=== PATIENT | male | born 1975 | race Caucasian/White ===

== ENCOUNTER 2021-02-13 16:07 | Inpatient (IN) | payer OTHER ==
[2021-02-13] MEDS ORDERED: MAGNESIUM CITRATE 300 ML BOTTLE PO PRN (20:09)
[2021-02-13] MEDS ORDERED: IBUPROFEN 400 MG TABLET (FP) PO PRN (20:09)
[2021-02-13] MEDS ORDERED: MENTHOL/PHENOL 1 EACH UD MM PRN (20:09)
[2021-02-13] MEDS ORDERED: ONDANSETRON *ODT* 4 MG TABLET SL PRN (20:09)
[2021-02-13] MEDS ORDERED: ACETAMINOPHEN 325 MG TABLET (FP) PO PRN ×2 (20:09)
[2021-02-13] MEDS ORDERED: MAGNESIUM HYDROX 2400MG/30ML ORAL SUSPENSION 30 ML CUP PO PRN (20:09)
[2021-02-13] MEDS ORDERED: BISMUTH SUBSALICYLATE 524 MG/30 ML PO PRN (20:09)
[2021-02-13] MEDS ORDERED: MAG HYDROX/AL HYDROX/SIMETH 30 ML UNIT-DOSE CUP PO PRN (20:09)
[2021-02-13 21:45] VITALS: BMI 25.5
[2021-02-14] MEDS ORDERED: diazePAM 5 MG TABLET ONE (00:02)
[2021-02-14] MEDS: diazePAM 5 MG TABLET PO SCH ×5 (00:06→22:13)
[2021-02-14] MEDS: THIAMINE HCL 100 MG TABLET (FP) PO SCH ×2 (00:06→22:14)
[2021-02-14] MEDS: MELATONIN 5 MG TABLETS PO SCH ×2 (00:08→22:12)
[2021-02-14] MEDS: NICOTINE POLACRILEX 2 MG GUM BUC PRN ×5 (02:29→22:35)
[2021-02-14] MEDS: NICOTINE 21 MG/24 HOURS TOPICAL PATCH TD SCH (09:36)
[2021-02-14] MEDS ORDERED: GABAPENTIN 100 MG CAPSULE PO ONE (10:15)
[2021-02-14] MEDS ORDERED: diphenhydrAMINE HCL 25 MG CAPSULE (FP) PO ONE (10:23)
[2021-02-14] MEDS: PRENATAL VITAMINS W/ FOLIC ACID TABLET (FP) PO SCH (10:24)
[2021-02-14] MEDS ORDERED: diphenhydrAMINE HCL 50 MG CAPSULE PO ONE (12:00)
[2021-02-14] MEDS: GABAPENTIN 100 MG CAPSULE PO SCH ×2 (14:29→22:13)
[2021-02-14] MEDS: diazePAM 5 MG TABLET PO PRN (20:07)
[2021-02-15] MEDS: diazePAM 5 MG TABLET PO PRN ×2 (04:05→08:56)
[2021-02-15] MEDS: METHOCARBAMOL 500 MG TABLET PO PRN ×3 (04:05→19:26)
[2021-02-15] MEDS: diazePAM 5 MG TABLET PO SCH ×3 (05:30→21:49)
[2021-02-15] MEDS: NICOTINE 21 MG/24 HOURS TOPICAL PATCH TD SCH (10:38)
[2021-02-15] MEDS: PRENATAL VITAMINS W/ FOLIC ACID TABLET (FP) PO SCH (10:38)
[2021-02-15] MEDS: NICOTINE POLACRILEX 2 MG GUM BUC PRN ×2 (10:40→15:56)
[2021-02-15 11:12] LABS: HEMATOCRIT 36.3 % (35.4-49); HEMOGLOBIN 11.4 GM/dL (11.7-16.9); MCH 23.8 pg (25.7-33.7); MCHC 31.4 g/dl (32.0-35.9); MEAN CELL VOLUME 75.7 fl (80-96); MEAN PLT VOLUME 8.3 fl (7.5-11.1); PLATELET COUNT 375 10^3/uL (134-434); RDW 22.4 % (11.9-15.9); WHITE BLOOD COUNT 5.7 K/mm3 (4.0-10.0)
[2021-02-15 11:13] LABS: ALBUMIN 3.3 g/dl (3.4-5.0); CALCIUM 9.6 mg/dL (8.5-10.1)
[2021-02-15 11:14] LABS: BLOOD UREA NITROGEN 8.5 mg/dL (7-18)
[2021-02-15 11:17] LABS: CREATININE 0.8 mg/dL (0.55-1.3)
[2021-02-15 11:18] LABS: BILIRUBIN,TOTAL 0.4 mg/dL (0.2-1); TOT PROT 7.7 g/dl (6.4-8.2)
[2021-02-15] MEDS ORDERED: diazePAM 5 MG TABLET PO PRN (14:03)
[2021-02-15] MEDS ORDERED: INSULIN (NOVOLOG) ASPART 100 UNITS/ML 10ML VIAL ONE ×2 (17:08→21:43)
[2021-02-15] MEDS: INSULIN SLIDING SCALE (NOVOLOG) 1 VIAL SQ SCH ×2 (17:11→21:51)
[2021-02-15] MEDS: THIAMINE HCL 100 MG TABLET (FP) PO SCH (21:48)
[2021-02-15] MEDS: MELATONIN 5 MG TABLETS PO SCH ×2 (21:48→22:44)
[2021-02-16] MEDS ORDERED: diazePAM 5 MG TABLET PO ONE (00:41)
[2021-02-16] MEDS: diazePAM 5 MG TABLET PO SCH ×2 (05:31→17:27)
[2021-02-16] MEDS: NICOTINE POLACRILEX 2 MG GUM BUC PRN ×4 (05:58→19:54)
[2021-02-16] MEDS ORDERED: INSULIN (NOVOLOG) ASPART 100 UNITS/ML 10ML VIAL ONE ×3 (08:29→17:29)
[2021-02-16] MEDS: INSULIN SLIDING SCALE (NOVOLOG) 1 VIAL SQ SCH ×4 (08:29→22:09)
[2021-02-16] MEDS: PRENATAL VITAMINS W/ FOLIC ACID TABLET (FP) PO SCH (10:16)
[2021-02-16] MEDS: METHOCARBAMOL 500 MG TABLET PO PRN ×2 (10:16→22:08)
[2021-02-16] MEDS: NICOTINE 21 MG/24 HOURS TOPICAL PATCH TD SCH (10:18)
[2021-02-16] MEDS: THIAMINE HCL 100 MG TABLET (FP) PO SCH (22:07)
[2021-02-16] MEDS: MELATONIN 5 MG TABLETS PO SCH ×2 (22:08)
[2021-02-17] MEDS: METHOCARBAMOL 500 MG TABLET PO PRN (05:50)
[2021-02-17] MEDS ORDERED: diazePAM 5 MG TABLET PO ONE (06:00)
[2021-02-17] MEDS: NICOTINE POLACRILEX 2 MG GUM BUC PRN ×2 (06:59→10:50)
[2021-02-17] MEDS ORDERED: INSULIN (NOVOLOG) ASPART 100 UNITS/ML 10ML VIAL ONE ×2 (08:11→11:49)
[2021-02-17] MEDS: INSULIN SLIDING SCALE (NOVOLOG) 1 VIAL SQ SCH ×2 (08:11→11:52)
[2021-02-17 09:24] VITALS: BP 123/93; PULSE 68; TEMP 97.3
[2021-02-17] MEDS: PRENATAL VITAMINS W/ FOLIC ACID TABLET (FP) PO SCH (10:01)
[2021-02-17] MEDS: NICOTINE 21 MG/24 HOURS TOPICAL PATCH TD SCH (10:03)
== END 2021-02-17 12:51 | disposition other institution (70) | DRG 775 ==
LOC: YASAS 16:07 → Y6N 02-14 01:08
PROVIDERS: ADMIT Allergy & Immunology; ATTEND Allergy & Immunology
PROC: HZ2ZZZZ Detoxification Services for Substance Abuse Treatment (ICD-10-PCS; principal; 2021-02-14)
DX: F10.230 Alcohol dependence with withdrawal, uncomplicated (principal); F10.282 Alcohol dependence with alcohol-induced sleep disorder; F10.280 Alcohol dependence with alcohol-induced anxiety disorder; F17.210 Nicotine dependence, cigarettes, uncomplicated; F90.8 Attention-deficit hyperactivity disorder, other type; E11.65 Type 2 diabetes mellitus with hyperglycemia; Z79.4 Long term (current) use of insulin; R74.8 Abnormal levels of other serum enzymes; Z86.69 Personal history of other diseases of the nervous system and sense organs; Z87.19 Personal history of other diseases of the digestive system; Z88.0 Allergy status to penicillin; Z56.0 Unemployment, unspecified
CPT/HCPCS: 36415; 80053; 82962; 83036; 85027; 86780; C9803; U0003; U0005

== ENCOUNTER 2021-02-17 12:43 | Inpatient (IN) | payer OTHER ==
[2021-02-17] MEDS ORDERED: ACETAMINOPHEN 325 MG TABLET (FP) PO PRN (15:24)
[2021-02-17] MEDS ORDERED: MAGNESIUM CITRATE 300 ML BOTTLE PO PRN (15:24)
[2021-02-17] MEDS ORDERED: LOPERAMIDE HCL 2 MG CAPSULE PO PRN (15:24)
[2021-02-17] MEDS ORDERED: MAGNESIUM HYDROX 2400MG/30ML ORAL SUSPENSION 30 ML CUP PO PRN (15:24)
[2021-02-17] MEDS ORDERED: MENTHOL/PHENOL 1 EACH UD MM PRN (15:24)
[2021-02-17] MEDS ORDERED: MAG HYDROX/AL HYDROX/SIMETH 30 ML UNIT-DOSE CUP PO PRN (15:24)
[2021-02-17] MEDS ORDERED: diphenhydrAMINE HCL 25 MG CAPSULE (FP) PO ONE (15:37)
[2021-02-17] MEDS: INSULIN SLIDING SCALE (NOVOLOG) 1 VIAL SQ SCH ×2 (16:40→22:02)
[2021-02-17] MEDS ORDERED: INSULIN (NOVOLOG) ASPART 100 UNITS/ML 10ML VIAL ONE (16:58)
[2021-02-17] MEDS: NICOTINE POLACRILEX 2 MG GUM BUC PRN (17:26)
[2021-02-17] MEDS ORDERED: INSULIN (LEVEMIR) 100 UNITS/ML UNITS SQ ONE (19:50)
[2021-02-17] MEDS: THIAMINE HCL 100 MG TABLET (FP) PO SCH (21:13)
[2021-02-17] MEDS ORDERED: MELATONIN 5 MG TABLETS PO SCH (22:00)
[2021-02-17] MEDS: INSULIN (LEVEMIR) 100 UNITS/ML UNITS SQ SCH (22:02)
[2021-02-18] MEDS: NICOTINE POLACRILEX 2 MG GUM BUC PRN ×3 (06:59→20:18)
[2021-02-18] MEDS ORDERED: INSULIN (NOVOLOG) ASPART 100 UNITS/ML 10ML VIAL ONE ×4 (07:01→22:09)
[2021-02-18] MEDS: INSULIN SLIDING SCALE (NOVOLOG) 1 VIAL SQ SCH ×4 (07:49→21:11)
[2021-02-18] MEDS ORDERED: PT OWN MED DRAWER 7, Y5N ONE (07:53)
[2021-02-18] MEDS: PRENATAL VITAMINS W/ FOLIC ACID TABLET (FP) PO SCH (10:46)
[2021-02-18] MEDS: NICOTINE 21 MG/24 HOURS TOPICAL PATCH TD SCH (10:47)
[2021-02-18] MEDS ORDERED: FLU VACC QS2021-22(6MOS UP)/PF 60 MCG/0.5 ML SYRINGE IM ONE (12:00)
[2021-02-18] MEDS: IBUPROFEN 400 MG TABLET (FP) PO PRN (13:43)
[2021-02-18] MEDS: MELATONIN 5 MG TABLETS PO SCH (21:08)
[2021-02-18] MEDS: THIAMINE HCL 100 MG TABLET (FP) PO SCH (21:08)
[2021-02-18] MEDS: INSULIN (LEVEMIR) 100 UNITS/ML UNITS SQ SCH (21:10)
[2021-02-19] MEDS: NICOTINE POLACRILEX 2 MG GUM BUC PRN ×4 (07:04→21:18)
[2021-02-19] MEDS ORDERED: INSULIN (NOVOLOG) ASPART 100 UNITS/ML 10ML VIAL ONE ×4 (07:26→22:24)
[2021-02-19] MEDS: INSULIN SLIDING SCALE (NOVOLOG) 1 VIAL SQ SCH ×4 (07:49→23:15)
[2021-02-19] MEDS: PRENATAL VITAMINS W/ FOLIC ACID TABLET (FP) PO SCH (10:02)
[2021-02-19] MEDS: NICOTINE 21 MG/24 HOURS TOPICAL PATCH TD SCH (10:02)
[2021-02-19] MEDS: IBUPROFEN 400 MG TABLET (FP) PO PRN (10:04)
[2021-02-19] MEDS: THIAMINE HCL 100 MG TABLET (FP) PO SCH (21:17)
[2021-02-19] MEDS: MELATONIN 5 MG TABLETS PO SCH (21:17)
[2021-02-19] MEDS: INSULIN (LEVEMIR) 100 UNITS/ML UNITS SQ SCH (21:17)
[2021-02-20] MEDS: INSULIN SLIDING SCALE (NOVOLOG) 1 VIAL SQ SCH ×4 (06:24→21:33)
[2021-02-20] MEDS ORDERED: INSULIN (NOVOLOG) ASPART 100 UNITS/ML 10ML VIAL ONE ×4 (06:25→22:20)
[2021-02-20] MEDS: NICOTINE POLACRILEX 2 MG GUM BUC PRN ×2 (06:40→11:45)
[2021-02-20] MEDS: NICOTINE 21 MG/24 HOURS TOPICAL PATCH TD SCH (10:00)
[2021-02-20] MEDS: PRENATAL VITAMINS W/ FOLIC ACID TABLET (FP) PO SCH (10:01)
[2021-02-20] MEDS: THIAMINE HCL 100 MG TABLET (FP) PO SCH (21:30)
[2021-02-20] MEDS: MELATONIN 5 MG TABLETS PO SCH (21:30)
[2021-02-20] MEDS: INSULIN (LEVEMIR) 100 UNITS/ML UNITS SQ SCH (21:31)
[2021-02-20] MEDS ORDERED: INSULIN (LEVEMIR) 100 UNITS/ML UNITS SQ ONE (22:20)
[2021-02-21] MEDS: INSULIN SLIDING SCALE (NOVOLOG) 1 VIAL SQ SCH ×4 (07:26→22:11)
[2021-02-21] MEDS ORDERED: INSULIN (NOVOLOG) ASPART 100 UNITS/ML 10ML VIAL ONE ×3 (07:26→21:47)
[2021-02-21] MEDS: PRENATAL VITAMINS W/ FOLIC ACID TABLET (FP) PO SCH (09:49)
[2021-02-21] MEDS: NICOTINE 21 MG/24 HOURS TOPICAL PATCH TD SCH (09:50)
[2021-02-21] MEDS: NICOTINE POLACRILEX 2 MG GUM BUC PRN ×4 (09:50→21:41)
[2021-02-21] MEDS: PANTOPRAZOLE 20 MG TABLET PO SCH (15:30)
[2021-02-21] MEDS: IBUPROFEN 400 MG TABLET (FP) PO PRN (21:39)
[2021-02-21] MEDS: THIAMINE HCL 100 MG TABLET (FP) PO SCH (21:40)
[2021-02-21] MEDS: MELATONIN 5 MG TABLETS PO SCH (21:41)
[2021-02-21] MEDS: INSULIN (LEVEMIR) 100 UNITS/ML UNITS SQ SCH (22:10)
[2021-02-22] MEDS: NICOTINE POLACRILEX 2 MG GUM BUC PRN ×2 (06:35→10:10)
[2021-02-22] MEDS: IBUPROFEN 400 MG TABLET (FP) PO PRN (06:37)
[2021-02-22 06:55] VITALS: TEMP 96.9
[2021-02-22] MEDS: INSULIN SLIDING SCALE (NOVOLOG) 1 VIAL SQ SCH ×2 (07:09→12:04)
[2021-02-22] MEDS: NICOTINE 21 MG/24 HOURS TOPICAL PATCH TD SCH (10:09)
[2021-02-22] MEDS: PANTOPRAZOLE 20 MG TABLET PO SCH (10:09)
[2021-02-22] MEDS: PRENATAL VITAMINS W/ FOLIC ACID TABLET (FP) PO SCH (10:10)
[2021-02-22 10:45] VITALS: BP 135/88; PULSE 85
== END 2021-02-22 13:05 | disposition home or self-care (01) | DRG 772 ==
LOC: YASAS 12:43 → Y3E 12:44
PROVIDERS: ADMIT Allergy & Immunology; ATTEND Allergy & Immunology
PROC: HZ42ZZZ Group Counseling for Substance Abuse Treatment, Cognitive-Behavioral (ICD-10-PCS; principal; 2021-02-17)
DX: F10.20 Alcohol dependence, uncomplicated (principal); F17.210 Nicotine dependence, cigarettes, uncomplicated; F10.282 Alcohol dependence with alcohol-induced sleep disorder; F90.9 Attention-deficit hyperactivity disorder, unspecified type; E11.9 Type 2 diabetes mellitus without complications; Z79.4 Long term (current) use of insulin; Z87.19 Personal history of other diseases of the digestive system; Z86.69 Personal history of other diseases of the nervous system and sense organs; Z88.0 Allergy status to penicillin; Z56.0 Unemployment, unspecified
CPT/HCPCS: 82962; 90686; G0008

== ENCOUNTER 2021-11-26 12:13 | Inpatient (IN) | payer OTHER ==
[2021-11-26 13:05] VITALS: BMI 23.6
[2021-11-26] MEDS ORDERED: IBUPROFEN 400 MG TABLET (FP) PO PRN (15:07)
[2021-11-26] MEDS ORDERED: LOPERAMIDE HCL 2 MG CAPSULE PO PRN (15:07)
[2021-11-26] MEDS ORDERED: MAGNESIUM HYDROX 2400MG/30ML ORAL SUSPENSION 30 ML CUP PO PRN (15:07)
[2021-11-26] MEDS ORDERED: IBUPROFEN 600 MG TABLET (FP) PO PRN (15:07)
[2021-11-26] MEDS ORDERED: ACETAMINOPHEN 325 MG TABLET (FP) PO PRN ×2 (15:07)
[2021-11-26] MEDS ORDERED: BISMUTH SUBSALICYLATE 262 MG/15 ML BTL PO PRN (15:07)
[2021-11-26] MEDS ORDERED: NALOXONE HCL (KLOXXADO) 8 MG SPRAY NS PRN (15:07)
[2021-11-26] MEDS ORDERED: NICOTINE 10 MG CARTRIDGE (INHALER) IH PRN (15:07)
[2021-11-26] MEDS ORDERED: ONDANSETRON *ODT* 4 MG TABLET SL PRN (15:07)
[2021-11-26] MEDS ORDERED: MAG HYDROX/AL HYDROX/SIMETH 30 ML UNIT-DOSE CUP PO PRN (15:07)
[2021-11-26] MEDS ORDERED: MAGNESIUM CITRATE 300 ML BOTTLE PO PRN (15:07)
[2021-11-26] MEDS ORDERED: DICYCLOMINE HCL 10 MG CAPSULE PO PRN (15:07)
[2021-11-26] MEDS ORDERED: BENZOCAINE/MENTHOL (CHLORASEPTIC ) LOZENGE MM PRN (15:07)
[2021-11-26] MEDS ORDERED: LORazepam 2 MG TABLET ONE (15:27)
[2021-11-26] MEDS: LORazepam 2 MG TABLET PO SCH ×3 (15:38→22:17)
[2021-11-26] MEDS: INSULIN SLIDING SCALE (NOVOLOG) 1 VIAL SQ SCH (16:59)
[2021-11-26] MEDS: PRENATAL VITAMINS W/ FOLIC ACID TABLET (FP) PO SCH (17:23)
[2021-11-26] MEDS: METHOCARBAMOL 500 MG TABLET PO PRN (17:23)
[2021-11-26] MEDS: hydrOXYzine PAMOATE 25 MG CAPSULE (FP) PO SCH ×2 (17:23→22:16)
[2021-11-26] MEDS: THIAMINE HCL 100 MG TABLET (FP) PO SCH (22:16)
[2021-11-26] MEDS: MELATONIN 5 MG TABLETS PO SCH (22:17)
[2021-11-27] MEDS: hydrOXYzine PAMOATE 25 MG CAPSULE (FP) PO SCH ×5 (05:14→22:22)
[2021-11-27] MEDS: LORazepam 2 MG TABLET PO SCH ×3 (05:15→17:14)
[2021-11-27] MEDS: INSULIN SLIDING SCALE (NOVOLOG) 1 VIAL SQ SCH ×2 (06:46→17:15)
[2021-11-27] MEDS ORDERED: INSULIN SLIDING SCALE (NOVOLOG) 1 VIAL SQ ONE (06:47)
[2021-11-27] MEDS: PRENATAL VITAMINS W/ FOLIC ACID TABLET (FP) PO SCH (10:07)
[2021-11-27] MEDS: NICOTINE POLACRILEX 4 MG GUM BUC PRN (17:18)
[2021-11-27] MEDS: METHOCARBAMOL 500 MG TABLET PO PRN (17:19)
[2021-11-27] MEDS: THIAMINE HCL 100 MG TABLET (FP) PO SCH (22:22)
[2021-11-27] MEDS: LORazepam 1 MG TABLET PO PRN (22:22)
[2021-11-27] MEDS: MELATONIN 5 MG TABLETS PO SCH (22:22)
[2021-11-28] MEDS: LORazepam 1 MG TABLET PO SCH ×4 (05:15→22:22)
[2021-11-28] MEDS: hydrOXYzine PAMOATE 25 MG CAPSULE (FP) PO SCH ×5 (05:15→22:22)
[2021-11-28] MEDS: METHOCARBAMOL 500 MG TABLET PO PRN ×4 (05:15→22:22)
[2021-11-28] MEDS: INSULIN SLIDING SCALE (NOVOLOG) 1 VIAL SQ SCH ×2 (07:56→17:58)
[2021-11-28] MEDS: PRENATAL VITAMINS W/ FOLIC ACID TABLET (FP) PO SCH (10:16)
[2021-11-28] MEDS: NICOTINE POLACRILEX 4 MG GUM BUC PRN ×3 (12:35→22:39)
[2021-11-28] MEDS: LORazepam 1 MG TABLET PO PRN (12:38)
[2021-11-28] MEDS: THIAMINE HCL 100 MG TABLET (FP) PO SCH (22:22)
[2021-11-28] MEDS: MELATONIN 5 MG TABLETS PO SCH (22:23)
[2021-11-29] MEDS ORDERED: LORazepam 0.5 MG TABLET PO PRN
[2021-11-29] MEDS: METHOCARBAMOL 500 MG TABLET PO PRN ×2 (05:19→12:44)
[2021-11-29] MEDS: LORazepam 0.5 MG TABLET PO SCH ×2 (05:19→10:08)
[2021-11-29] MEDS: hydrOXYzine PAMOATE 25 MG CAPSULE (FP) PO SCH ×3 (05:19→13:56)
[2021-11-29] MEDS: INSULIN SLIDING SCALE (NOVOLOG) 1 VIAL SQ SCH (07:49)
[2021-11-29] MEDS ORDERED: INSULIN SLIDING SCALE (NOVOLOG) 1 VIAL SQ ONE ×2 (09:12→11:27)
[2021-11-29] MEDS: PRENATAL VITAMINS W/ FOLIC ACID TABLET (FP) PO SCH (10:08)
[2021-11-29] MEDS ORDERED: INSULIN (NOVOLOG) ASPART 100 UNITS/ML 10ML VIAL SQ SCH (11:00)
[2021-11-29 12:43] VITALS: BP 120/86; PULSE 86; RESP 18; TEMP 97.1
[2021-11-29] MEDS: NICOTINE POLACRILEX 4 MG GUM BUC PRN (12:43)
[2021-11-30] MEDS ORDERED: LORazepam 0.5 MG TABLET PO ONE (05:00)
== END 2021-11-29 14:15 | disposition left against medical advice (07) | DRG 770 ==
LOC: YASAS 12:13 → Y3N 15:24
PROVIDERS: ADMIT Allergy & Immunology; ATTEND Surgery
PROC: HZ2ZZZZ Detoxification Services for Substance Abuse Treatment (ICD-10-PCS; principal; 2021-11-26)
DX: F10.230 Alcohol dependence with withdrawal, uncomplicated (principal); F10.282 Alcohol dependence with alcohol-induced sleep disorder; F10.280 Alcohol dependence with alcohol-induced anxiety disorder; F17.210 Nicotine dependence, cigarettes, uncomplicated; E11.65 Type 2 diabetes mellitus with hyperglycemia; Z88.0 Allergy status to penicillin; Z91.14 Patient's other noncompliance with medication regimen; Z86.69 Personal history of other diseases of the nervous system and sense organs; Z86.59 Personal history of other mental and behavioral disorders; Z86.79 Personal history of other diseases of the circulatory system
CPT/HCPCS: 82962; 87811; C9803-CS; Q0162; U0003; U0005

== ENCOUNTER 2022-06-01 13:31 | Inpatient (IN) | payer OTHER ==
[2022-06-01 14:56] VITALS: BMI 23.6
[2022-06-01] MEDS ORDERED: TRIMETHOBENZAMIDE HCL 200MG/2ML INJ IM ONE ×2 (16:40→17:11)
[2022-06-01] MEDS ORDERED: LOPERAMIDE HCL 2 MG CAPSULE PO PRN (16:46)
[2022-06-01] MEDS ORDERED: IBUPROFEN 400 MG TABLET (FP) PO PRN (16:46)
[2022-06-01] MEDS ORDERED: P-EPHED 60MG/TRIPROLIDI 2.5MG TABLET PO PRN (16:46)
[2022-06-01] MEDS ORDERED: DICYCLOMINE HCL 10 MG CAPSULE PO PRN (16:46)
[2022-06-01] MEDS ORDERED: MAGNESIUM HYDROX 2400MG/30ML ORAL SUSPENSION 30 ML CUP PO PRN (16:46)
[2022-06-01] MEDS ORDERED: BENZOCAINE/MENTHOL (CHLORASEPTIC ) LOZENGE MM PRN (16:46)
[2022-06-01] MEDS ORDERED: POLYETHYLENE GLYCOL (HEALTHYLAX) 3350 17 GM PACKET PO PRN (16:46)
[2022-06-01] MEDS ORDERED: MELATONIN 5 MG TABLETS PO PRN (16:46)
[2022-06-01] MEDS ORDERED: ACETAMINOPHEN 325 MG TABLET (FP) PO PRN ×2 (16:46)
[2022-06-01] MEDS ORDERED: ONDANSETRON *ODT* 4 MG TABLET SL PRN (16:46)
[2022-06-01] MEDS ORDERED: guaiFENesin 200 MG/10 ML 10 ML UNIT-DOSE CUPS PO PRN (16:46)
[2022-06-01] MEDS ORDERED: BISMUTH SUBSALICYLATE 524 MG/30 ML PO PRN (16:46)
[2022-06-01] MEDS ORDERED: MAG HYDROX/AL HYDROX/SIMETH 30 ML UNIT-DOSE CUP PO PRN (16:46)
[2022-06-01] MEDS ORDERED: HYDROCORTISONE 0.5% TOPICAL CREAM 30 GM TUBE TP PRN (17:03)
[2022-06-01] MEDS ORDERED: LORazepam 1 MG TABLET PO PRN (17:09)
[2022-06-01] MEDS: INSULIN SLIDING SCALE (NOVOLOG) 1 VIAL SQ SCH ×2 (17:57→22:17)
[2022-06-01] MEDS: METHOCARBAMOL 500 MG TABLET PO PRN (19:38)
[2022-06-01] MEDS: hydrOXYzine PAMOATE 25 MG CAPSULE (FP) PO PRN (19:38)
[2022-06-01] MEDS: levETIRAcetam 500 MG TABLET (FP) PO SCH (22:15)
[2022-06-01] MEDS: THIAMINE HCL 100 MG TABLET (FP) PO SCH (22:15)
[2022-06-01] MEDS: LORazepam 2 MG TABLET PO SCH (22:16)
[2022-06-01] MEDS ORDERED: INSULIN (NOVOLOG) ASPART 100 UNITS/ML 10ML VIAL ONE (22:17)
[2022-06-02] MEDS: LORazepam 2 MG TABLET PO SCH ×4 (05:26→22:15)
[2022-06-02] MEDS: METHOCARBAMOL 500 MG TABLET PO PRN ×2 (05:26→17:27)
[2022-06-02] MEDS: INSULIN SLIDING SCALE (NOVOLOG) 1 VIAL SQ SCH ×4 (06:12→22:15)
[2022-06-02] MEDS: PRENATAL VITAMINS W/ FOLIC ACID TABLET (FP) PO SCH (10:19)
[2022-06-02] MEDS: hydrOXYzine PAMOATE 25 MG CAPSULE (FP) PO PRN (10:20)
[2022-06-02] MEDS: levETIRAcetam 500 MG TABLET (FP) PO SCH ×2 (10:20→22:14)
[2022-06-02] MEDS: THIAMINE HCL 100 MG TABLET (FP) PO SCH (22:14)
[2022-06-02] MEDS: INSULIN (LEVEMIR) 100 UNITS/ML UNITS SQ SCH (22:14)
[2022-06-03] MEDS: LORazepam 1 MG TABLET PO SCH ×4 (05:37→22:19)
[2022-06-03] MEDS: METHOCARBAMOL 500 MG TABLET PO PRN (05:40)
[2022-06-03] MEDS: hydrOXYzine PAMOATE 25 MG CAPSULE (FP) PO PRN ×2 (05:40→17:32)
[2022-06-03] MEDS: NICOTINE POLACRILEX 2 MG GUM BUC PRN ×2 (07:01→11:04)
[2022-06-03] MEDS: INSULIN SLIDING SCALE (NOVOLOG) 1 VIAL SQ SCH ×4 (07:13→21:35)
[2022-06-03] MEDS: levETIRAcetam 500 MG TABLET (FP) PO SCH ×2 (10:30→22:19)
[2022-06-03] MEDS: PRENATAL VITAMINS W/ FOLIC ACID TABLET (FP) PO SCH (10:30)
[2022-06-03] MEDS: INSULIN (LEVEMIR) 100 UNITS/ML UNITS SQ SCH (21:33)
[2022-06-03] MEDS: THIAMINE HCL 100 MG TABLET (FP) PO SCH (22:19)
[2022-06-03] MEDS: SUVOREXANT 10 MG TABLET PO PRN (22:20)
[2022-06-04] MEDS ORDERED: LORazepam 0.5 MG TABLET PO PRN
[2022-06-04] MEDS: LORazepam 0.5 MG TABLET PO SCH ×4 (06:14→23:12)
[2022-06-04] MEDS: IBUPROFEN 600 MG TABLET (FP) PO PRN ×2 (06:17→17:43)
[2022-06-04] MEDS: METHOCARBAMOL 500 MG TABLET PO PRN ×2 (06:17→23:03)
[2022-06-04] MEDS: INSULIN SLIDING SCALE (NOVOLOG) 1 VIAL SQ SCH ×4 (06:28→23:05)
[2022-06-04 09:01] VITALS: RESP 18
[2022-06-04] MEDS: PRENATAL VITAMINS W/ FOLIC ACID TABLET (FP) PO SCH (10:47)
[2022-06-04] MEDS: levETIRAcetam 500 MG TABLET (FP) PO SCH ×2 (10:47→23:03)
[2022-06-04] MEDS ORDERED: INSULIN SLIDING SCALE (NOVOLOG) 1 VIAL SQ ONE (12:01)
[2022-06-04] MEDS: NICOTINE POLACRILEX 2 MG GUM BUC PRN (17:39)
[2022-06-04] MEDS: hydrOXYzine PAMOATE 25 MG CAPSULE (FP) PO PRN (17:40)
[2022-06-04] MEDS ORDERED: INSULIN (LEVEMIR) 100 UNITS/ML UNITS SQ SCH (22:00)
[2022-06-04] MEDS: SUVOREXANT 10 MG TABLET PO PRN (23:03)
[2022-06-04] MEDS: THIAMINE HCL 100 MG TABLET (FP) PO SCH (23:03)
[2022-06-05] MEDS ORDERED: LORazepam 0.5 MG TABLET PO ONE (05:00)
[2022-06-05] MEDS: METHOCARBAMOL 500 MG TABLET PO PRN (05:30)
[2022-06-05] MEDS: IBUPROFEN 600 MG TABLET (FP) PO PRN (05:30)
[2022-06-05] MEDS: NICOTINE POLACRILEX 2 MG GUM BUC PRN (05:32)
[2022-06-05] MEDS: INSULIN SLIDING SCALE (NOVOLOG) 1 VIAL SQ SCH (07:38)
[2022-06-05 09:10] VITALS: BP 162/89; PULSE 112; TEMP 96.9
[2022-06-05] MEDS: PRENATAL VITAMINS W/ FOLIC ACID TABLET (FP) PO SCH (09:34)
[2022-06-05] MEDS: levETIRAcetam 500 MG TABLET (FP) PO SCH (09:34)
== END 2022-06-05 08:55 | disposition home or self-care (01) | DRG 775 ==
LOC: YASAS 13:31 → Y6N 18:05 → Y3N 06-03 06:07
PROVIDERS: ADMIT Allergy & Immunology; ATTEND Family Medicine
PROC: HZ2ZZZZ Detoxification Services for Substance Abuse Treatment (ICD-10-PCS; principal; 2022-06-01)
DX: F10.230 Alcohol dependence with withdrawal, uncomplicated (principal); F17.210 Nicotine dependence, cigarettes, uncomplicated; F10.24 Alcohol dependence with alcohol-induced mood disorder; F98.8 Other specified behavioral and emotional disorders with onset usually occurring in childhood and adolescence; E11.65 Type 2 diabetes mellitus with hyperglycemia; Z79.4 Long term (current) use of insulin; Z87.19 Personal history of other diseases of the digestive system; Z86.69 Personal history of other diseases of the nervous system and sense organs; Z88.0 Allergy status to penicillin
CPT/HCPCS: 82962; C9803-CS; U0003; U0005